=== PATIENT | female | born 1945 ===

== ENCOUNTER 2018-07-04 12:30 | Emergency (ER) | payer OTHER ==
[~2018-07-04] VITALS: Ht 167.6 cm; Wt 77.1 kg
[2018-07-04] MEDS ORDERED: PROTONIX40 MG PO (13:01)
[2018-07-04] MEDS ORDERED: CRESTOR20 MG PO (13:01)
== END 2018-07-04 18:32 | disposition home or self-care (01) ==
LOC: ER 12:30
DX: K52.9 Noninfective gastroenteritis and colitis, unspecified (principal)

== ENCOUNTER 2018-12-02 14:18 | Emergency (ER) | payer OTHER ==
[~2018-12-02] VITALS: Ht 157.5 cm; Wt 72.1 kg
[~2018-12-02 14:18] MED LIST: CRESTOR20 MG PO; PROTONIX40 MG PO
[2018-12-02] MEDS ORDERED: LEVO-T25 MCG (15:17)
[2018-12-02] MEDS ORDERED: CRESTOR40 MG (15:18)
[2018-12-02] MEDS ORDERED: PEPCID20 MG (15:18)
== END 2018-12-02 18:18 | disposition home or self-care (01) ==
LOC: ER 14:18
DX: G44.209 Tension-type headache, unspecified, not intractable (principal); M54.2 Cervicalgia; M62.838 Other muscle spasm